=== PATIENT | female | born 1940 | race Caucasian/White ===

== ENCOUNTER 2017-11-10 19:40 | Emergency (ER) | payer OTHER, MEDICAID ==
[~2017-11-10] VITALS: Ht 162.6 cm; Wt 55.0 kg
[~2017-11-10 19:40] MED LIST: AMLO1TAB36 PO; ASPI-1158 PO; CITA10TA9 PO; CLOP75TA33 PO; FLUT16SP15; IBUP-2028 PO; LOSA25TA3 PO; METO1TAB17 PO; NITR2.5C12 PO; POTA10TA19 PO; SIMV20TA6 PO; TRAM50TA3 PO
[2017-11-10] MEDS ORDERED: KETOROLAC 30MG/ML VIAL IV STA (21:28)
[2017-11-10] MEDS ORDERED: SODIUM CHLORIDE 0.9% 1000ML BAG (SEPSIS BOLUS) IV ONE (21:30)
[2017-11-10 22:07] LABS: BASOPHILS % 0.3 % (0.0-2.0); EOSINOPHILS % 2.1 % (0.0-5.0); HEMATOCRIT. 35.1 % (36.0-48.0); HEMOGLOBIN. 12.1 g/dL (12.0-16.0); LYMPHOCYTES % 16.6 % (20.0-50.0); MEAN CORPUSCULAR HEMOGLOBIN 29.8 pg (28.0-32.0); MEAN CORPUSCULAR VOLUME 86.2 fL (81.0-99.0); PLATELET 284 x1000/uL (130-400); RED BLOOD CELL COUNT 4.07 mill/uL (4.2-5.4); RED CELL DISTRIBUTION WIDTH 13.2 % (11.6-14.6)
[2017-11-10 22:16] LABS: INR 1.1; PROTHROMBIN TIME 11.4 sec (9.4-11.6)
[2017-11-10 22:24] LABS: CARBON DIOXIDE 26 mEq/L (21-32); CHLORIDE 97 mEq/L (98-107); TROPONIN I < 0.02 ng/mL (0.00-0.04)
[2017-11-10 23:02] LABS: CLARITY URINE CLEAR (CLEAR); COLOR URINE YELLOW (YELLOW); KETONES URINE 1+ (NEGATIVE); LEUKOCYTE ESTERASE URINE NEGATIVE (NEGATIVE); NITRITE URINE NEGATIVE (NEGATIVE); OCCULT BLOOD URINE NEGATIVE (NEGATIVE); PROTEIN URINE NEGATIVE (NEGATIVE); SPECIFIC GRAVITY URINE 1.006 (1.005-1.030)
[2017-11-11] MEDS ORDERED: IPRATROPIUM/ALBUTEROL 0.5-3(2.5)MG/3ML NEB HHN ONE
[2017-11-11 01:00] VITALS: BP 122/76
== END 2017-11-11 01:19 | disposition home or self-care (01) ==
LOC: ER 20:42 → CANBEDREQ 11-11 01:31
DX: J06.9 Acute upper respiratory infection, unspecified (principal); I10 Essential (primary) hypertension; Z79.82 Long term (current) use of aspirin; Z95.5 Presence of coronary angioplasty implant and graft
CPT/HCPCS: 36415; 71045; 80053; 81003; 83605; 84484; 85025; 85610; 87040; 87086; 87804; 93005; 94640; 96361; 96374; 99285; J1885; J7030; J7620

== ENCOUNTER 2019-12-24 23:54 | Emergency (ER) | payer MEDICARE, MEDICAID ==
[~2019-12-24] VITALS: Ht 167.6 cm; Wt 68.0 kg
[~2019-12-24 23:54] MED LIST changes: +SIMV-43 PO; -SIMV20TA6 PO
[2019-12-25 00:03] VITALS: BP 135/99
== END 2019-12-25 05:04 | disposition left against medical advice (07) ==
LOC: ER 23:54
DX: Z53.21 Procedure and treatment not carried out due to patient leaving prior to being seen by health care provider (principal)